=== PATIENT | male | born 1945 | race Asian ===

== ENCOUNTER 2018-08-29 15:22 | Emergency (ER) | payer MEDICARE, OTHER ==
[~2018-08-29] VITALS: Ht 172.7 cm; Wt 86.2 kg
[~2018-08-29 15:22] MED LIST: CARV25 PO; ERGO400 PO; EZET10; FURO20 PO; GLYB5 PO; ISOMON30 PO; LISI5 PO; LOSHYD PO; METF500; METF500 PO; MULVITMINF; PIOG15; ROSU10TA; ROSU10TA PO
[2018-08-29 16:30] LABS: Influenza A Positive (NEGATIVE); Influenza B Negative (NEGATIVE)
[2018-08-29 16:32] LABS: BASOPHILS ABSOLUTE AUTO 0.03 K/mm3 (0.00-0.23); BASOPHILS PERCENT AUTO 0 % (0-2); EOSINOPHILS ABSOLUTE AUTO 0.01 K/mm3 (0.00-0.68); EOSINOPHILS PERCENT AUTO 0 % (0-6); Hematocrit 42.1 % (37.0-53.0); Hemoglobin 13.8 g/dL (13.5-17.5); IMMATURE GRAN ABSOLUTE AUTO 0.03 K/mm3 (0.00-0.10); IMMATURE GRAN PERCENT AUTO 0 % (0-1); LYMPHOCYTES ABSOLUTE AUTO 1.07 K/mm3 (0.84-5.20); LYMPHOCYTES PERCENT AUTO 13 % (21-46); MONOCYTES ABSOLUTE AUTO 0.73 K/mm3 (0.16-1.47); MONOCYTES PERCENT AUTO 9 % (4-13); Mean Corpuscular HGB 33.7 pg (26.0-34.0); Mean Corpuscular HGB Conc 32.8 g/dL (31.5-36.5); Mean Corpuscular Volume 103 fL (80-100); NEUTROPHILS ABSOLUTE AUTO 6.44 K/mm3 (1.96-9.15); NEUTROPHILS PERCENT AUTO 77 % (41-73); RDW Coefficient Variation 12.3 % (11.7-14.2); RDW Standard Deviation 46.8 fL (35.1-46.3); White Blood Cell Count 8.31 K/mm3 (4.00-11.30)
[2018-08-29 16:39] LABS: Alanine Aminotransfer (ALT/SGP 31 U/L (12-78); Albumin, Blood 3.6 g/dL (3.4-5.0); Albumin/Globulin Ratio 0.8 (0.8-1.8); Alk Phos 85 U/L (50-136); Anion Gap 9 mmol/L (6-16); Aspartate Aminotrans (AST/SGOT 28 U/L (12-37); Bilirubin, Total 0.6 mg/dL (0.1-1.0); Blood Urea Nitrogen 15 mg/dL (8-24); Bun/Creatinine Ratio 12.6 (12.0-20.0); CO2, Blood 26 mmol/L (21-32); Calcium, Blood 8.5 mg/dL (8.5-10.1); Chloride, Blood 101 mmol/L (98-108); Creatinine, Blood 1.19 mg/dL (0.60-1.20); Globulin, Blood 4.3 g/dL (2.2-4.0); Glomerular Filtration Rate >60 (60-); Glucose, Blood 155 mg/dL (70-99); Potassium, Blood 3.8 mmol/L (3.5-5.5); Sodium, Blood 136 mmol/L (136-145); Total Protein, Blood 7.9 g/dL (6.4-8.2)
[2018-08-29 16:42] LABS: Mean Platelet Volume 9.9 fL (9.1-12.4); Platelet Count 100 K/mm3 (150-400)
[2018-08-29] MEDS ORDERED: METF500C PO (16:52)
[2018-08-29] MEDS ORDERED: GLIP10 PO (16:52)
[2018-08-29] MEDS ORDERED: JARDIANCE10 MG PO (16:52)
[2018-08-29] MEDS ORDERED: LOSA50 PO (16:53)
[2018-08-29] MEDS ORDERED: FURO40 PO (16:53)
[2018-08-29] MEDS ORDERED: ROSU10TA PO (16:53)
[2018-08-29] MEDS ORDERED: OMEPRAZOLE MAGN20 MG PO (16:54)
[2018-08-29] MEDS ORDERED: GABA100 PO (16:54)
[2018-08-29] MEDS ORDERED: AMLO5 PO (16:54)
[2018-08-29] MEDS ORDERED: CARV6.25 PO (16:54)
[2018-08-29] MEDS ORDERED: VIT B PO (16:55)
[2018-08-29 17:44] LABS: Source, Urine Clean Catch
[2018-08-29 17:58] LABS: Appearance, Urine Clear (Clear); Bilirubin, Urine Neg (Neg); Blood, Urine 4+ (Neg); Color, Urine Yellow (P-Yellow); Glucose Qualitative, Urine 4+ (Neg); Ketones, Urine 1+ (Neg); Leukocyte Esterase, Urine Neg (Neg); Nitrite, Urine Neg (Neg); Protein, Urine 3+ (Neg); Specific Gravity, Urine 1.015 (1.003-1.022); Urobilinogen, Urine NORM (Normal)
[2018-08-29 18:10] LABS: White Blood Cells, Urine Rare /hpf (0-5)
[2018-08-29 18:11] LABS: Bacteria Not Seen /hpf; Squamous Epithelial Cells Not Seen /hpf (Few)
[2018-08-29] MEDS ORDERED: BENZ100A PO (19:28)
[2018-08-29] MEDS ORDERED: ONDA4ODT MM (19:28)
[2018-08-29] MEDS ORDERED: ACET500 PO (19:28)
== END 2018-08-29 19:38 | disposition home or self-care (01) ==
LOC: ER 15:22
PROVIDERS: Emergency Medicine; Physician Assistant
DX: J10.1 Influenza due to other identified influenza virus with other respiratory manifestations (principal); Z79.899 Other long term (current) drug therapy; Z79.84 Long term (current) use of oral hypoglycemic drugs; I10 Essential (primary) hypertension; E11.9 Type 2 diabetes mellitus without complications; Z87.891 Personal history of nicotine dependence
CPT/HCPCS: 71046; 80053; 81001; 85025; 87804; 93005; 93010; 96374; 99284-25; J2405; J7030

== ENCOUNTER → 2021-04-29 | Outpatient (CLI) | payer MEDICARE, OTHER ==
[~2021-04-29] MED LIST changes: +ACET500 PO; +AMLO5 PO; +BENZ100A PO; +CARV6.25 PO; +FURO40 PO; +GABA100 PO; +GLIP10 PO; +JARDIANCE10 MG PO; +LOSA50 PO; +METF500C PO; +OMEPRAZOLE MAGN20 MG PO; +ONDA4ODT MM; +VIT B PO
[2021-04-30 12:54] LABS: C DIFFICILE DNA Negative (Negative)
== END | disposition home or self-care (01) ==
LOC: LAB SHORT 15:18
PROVIDERS: Physician Assistant
DX: R19.7 Diarrhea, unspecified (principal)
CPT/HCPCS: 87015; 87045; 87046; 87205; 87493; 87899

== ENCOUNTER 2021-06-24 10:31 | Day surgery (SDC) | payer MEDICARE, OTHER ==
[~2021-06-24] VITALS: Ht 172.7 cm; Wt 81.4 kg
--- NOTE | 2021-06-24 14:54 | NUR ---
06/24/21 [id number] Feng Guzman 1415- PATIENT DENIES PAIN, N/V AT THIS TIME. PATIENT STATES HE IS READY TO GO HOME. VSS
== END 2021-06-24 14:35 | disposition home or self-care (01) ==
LOC: ORSCSDS 10:31
PROVIDERS: Orthopaedic Surgery
PROC: 0LN80ZZ Release Left Hand Tendon, Open Approach (ICD-10-PCS; principal; 2021-06-24 12:05)
PROC: 0JNK0ZZ Release Left Hand Subcutaneous Tissue and Fascia, Open Approach (ICD-10-PCS; principal; 2021-06-24 12:05)
DX: M72.0 Palmar fascial fibromatosis [Dupuytren] (principal); I10 Essential (primary) hypertension; I25.10 Atherosclerotic heart disease of native coronary artery without angina pectoris; Z95.0 Presence of cardiac pacemaker; Z87.891 Personal history of nicotine dependence; E11.9 Type 2 diabetes mellitus without complications; Z79.84 Long term (current) use of oral hypoglycemic drugs; Z79.899 Other long term (current) drug therapy
CPT/HCPCS: 82947; 88304; J0171; J0690; J1100; J1885; J2250; J2405; J2704; J3010; J7120

== ENCOUNTER → 2023-08-26 | Outpatient (CLI) | payer MEDICARE, OTHER | END | disposition home or self-care (01) | LOC: LAB 16:11 → LAB SHORT 16:11 | DX: Z51.81 Encounter for therapeutic drug level monitoring (principal); Z79.899 Other long term (current) drug therapy | CPT/HCPCS: 82607; 82746 ==

== ENCOUNTER 2023-09-03 15:20 | Emergency (ER) | payer MEDICARE, OTHER ==
[~2023-09-03] VITALS: Ht 170.2 cm; Wt 72.6 kg
[2023-09-03 15:56] LABS: BASOPHILS ABSOLUTE AUTO 0.03 K/mm3 (0.00-0.23); BASOPHILS PERCENT AUTO 1 % (0-2); EOSINOPHILS ABSOLUTE AUTO 0.23 K/mm3 (0.00-0.68); EOSINOPHILS PERCENT AUTO 4 % (0-6); Hematocrit 34.7 % (37.0-53.0); Hemoglobin 11.8 g/dL (13.5-17.5); IMMATURE GRAN ABSOLUTE AUTO 0.03 K/mm3 (0.00-0.10); IMMATURE GRAN PERCENT AUTO 1 % (0-1); LYMPHOCYTES ABSOLUTE AUTO 1.21 K/mm3 (0.84-5.20); LYMPHOCYTES PERCENT AUTO 22 % (21-46); MONOCYTES ABSOLUTE AUTO 0.31 K/mm3 (0.16-1.47); MONOCYTES PERCENT AUTO 6 % (4-13); Mean Corpuscular HGB 35.2 pg (26.0-34.0); Mean Corpuscular Volume 104 fL (80-100); Mean Platelet Volume 9.1 fL (9.1-12.4); NEUTROPHILS ABSOLUTE AUTO 3.78 K/mm3 (1.96-9.15); NEUTROPHILS PERCENT AUTO 68 % (41-73); Platelet Count 170 K/mm3 (150-400); RDW Coefficient Variation 12.7 % (11.7-14.2); RDW Standard Deviation 47.9 fL (35.1-46.3); Red Blood Cell Count 3.35 M/mm3 (4.30-5.90); White Blood Cell Count 5.59 K/mm3 (4.00-11.30)
[2023-09-03 16:14] LABS: Albumin, Blood 3.4 g/dL (3.4-5.0); Albumin/Globulin Ratio 0.9 (0.8-1.8); Bilirubin, Total 0.6 mg/dL (0.1-1.0); Bun/Creatinine Ratio 12.9 (12.0-20.0); Calcium, Blood 9.1 mg/dL (8.5-10.1); Creatinine, Blood 1.01 mg/dL (0.60-1.20); Globulin, Blood 3.8 g/dL (2.2-4.0); Potassium, Blood 3.9 mmol/L (3.5-5.5); Total Protein, Blood 7.2 g/dL (6.4-8.2)
[2023-09-03 16:48] LABS: International Normalized Ratio 1.04; Prothrombin Time Results 10.9 Sec (9.7-11.5)
[2023-09-03 19:00] VITALS: BP 168/71
== END 2023-09-03 19:10 | disposition short-term general hospital (02) ==
LOC: ER 15:20
PROVIDERS: Physician Assistant
DX: I62.00 Nontraumatic subdural hemorrhage, unspecified (principal); I10 Essential (primary) hypertension; I25.10 Atherosclerotic heart disease of native coronary artery without angina pectoris; E11.9 Type 2 diabetes mellitus without complications; Z87.891 Personal history of nicotine dependence; Z95.0 Presence of cardiac pacemaker; Z95.1 Presence of aortocoronary bypass graft; Z79.84 Long term (current) use of oral hypoglycemic drugs; Z79.899 Other long term (current) drug therapy; Z91.81 History of falling
CPT/HCPCS: 80053; 85025; 85610; 93005; 93010; 99285-25

== ENCOUNTER 2024-03-08 06:17 | Day surgery (SDC) | payer MEDICARE, OTHER ==
[~2024-03-08] VITALS: Ht 172.7 cm; Wt 81.0 kg
[2024-03-08] VITALS (7 sets, daily range): BP systolic 129–148; BP diastolic 54–75
[~2024-03-08 06:17] MED LIST changes: +ASPI81CH PO; +CHLO4 PO; +Crestor40 MG PO; +PIOG15 PO; +TRULICITY3 MG/0.5 M SC
[2024-03-08] MEDS ORDERED: CeFAZolin Sodium 1000 mg Vial ONE (06:48)
[2024-03-08] MEDS ORDERED: Heparin Sodium 1000 Units/ML 10ML MDV ONE (06:49)
[2024-03-08] MEDS ORDERED: NS 500 ML IV ONE (06:49)
[2024-03-08] MEDS ORDERED: NS 250 ML IV ONE (06:49)
[2024-03-08] MEDS ORDERED: NS 1,000 ML IV ONE (07:54)
[2024-03-08] MEDS ORDERED: CeFAZolin Sodium 2,000 MG VIAL ONE (07:55)
[2024-03-08] MEDS ORDERED: NS 50 ML IV ONE (07:55)
[2024-03-08] MEDS ORDERED: FentaNYL Citrate 50 MCG/ML 2 ML Injection ONE (08:03)
[2024-03-08] MEDS ORDERED: Midazolam HCl 1MG / ML 2ML Vial ONE (08:03)
--- NOTE | 2024-03-08 09:10 | NUR ---
[facility]. A&O, sitting up in recliner. dressing D&I. Dr Terry here to speak to patient about post op care.
--- NOTE | 2024-03-08 09:38 | NUR ---
patient sitting in teet[place], eating breakfast, ice pack in place
--- NOTE | 2024-03-08 10:15 | NUR ---
patient verbalized understanding of discharge instructions and precautions. no further questions, site soft no hematoma, no bleeding dressing D&I. patient will follow up with office for appointment tomorrow if he does not get a call from them today. patient discharged home via wheelchair by discharge vollunteer. friend driving him home.
== END 2024-03-08 10:40 | disposition home or self-care (01) ==
LOC: MHTC 06:17
DX: Z45.010 Encounter for checking and testing of cardiac pacemaker pulse generator [battery] (principal); I25.10 Atherosclerotic heart disease of native coronary artery without angina pectoris; I25.5 Ischemic cardiomyopathy; E78.5 Hyperlipidemia, unspecified; E11.9 Type 2 diabetes mellitus without complications; Z95.1 Presence of aortocoronary bypass graft; Z79.82 Long term (current) use of aspirin; Z79.84 Long term (current) use of oral hypoglycemic drugs; Z87.891 Personal history of nicotine dependence
CPT/HCPCS: 33228; 99152; 99153; C1785; J0690; J1644; J2250; J3010; J7030; J7040; J7050

== ENCOUNTER 2024-04-14 02:49 | Emergency (ER) | payer MEDICARE, OTHER ==
[~2024-04-14] VITALS: Ht 172.7 cm; Wt 80.7 kg
[2024-04-14] MEDS ORDERED: Ondansetron HCl 2 MG / ML 2ML Vial IV PRN (03:15)
[2024-04-14 03:28] LABS: BASOPHILS ABSOLUTE AUTO 0.02 K/mm3 (0.00-0.23); BASOPHILS PERCENT AUTO 1 % (0-2); EOSINOPHILS ABSOLUTE AUTO 0.13 K/mm3 (0.00-0.68); EOSINOPHILS PERCENT AUTO 4 % (0-6); Hemoglobin 8.3 g/dL (13.5-17.5); IMMATURE GRAN ABSOLUTE AUTO 0.01 K/mm3 (0.00-0.10); IMMATURE GRAN PERCENT AUTO 0 % (0-1); LYMPHOCYTES ABSOLUTE AUTO 1.06 K/mm3 (0.84-5.20); LYMPHOCYTES PERCENT AUTO 32 % (21-46); MONOCYTES ABSOLUTE AUTO 0.26 K/mm3 (0.16-1.47); MONOCYTES PERCENT AUTO 8 % (4-13); Mean Corpuscular HGB 35.3 pg (26.0-34.0); Mean Corpuscular HGB Conc 30.7 g/dL (31.5-36.5); Mean Corpuscular Volume 115 fL (80-100); Mean Platelet Volume 8.9 fL (9.1-12.4); NEUTROPHILS ABSOLUTE AUTO 1.87 K/mm3 (1.96-9.15); NEUTROPHILS PERCENT AUTO 56 % (41-73); Platelet Count 119 K/mm3 (150-400); RDW Coefficient Variation 13.2 % (11.7-14.2); RDW Standard Deviation 56.1 fL (35.1-46.3); Red Blood Cell Count 2.35 M/mm3 (4.30-5.90); White Blood Cell Count 3.35 K/mm3 (4.00-11.30)
[2024-04-14 03:45] LABS: Albumin, Blood 2.2 g/dL (3.4-5.0); Albumin/Globulin Ratio 0.9 (0.8-1.8); Bilirubin, Total 0.3 mg/dL (0.1-1.0); Bun/Creatinine Ratio 15.1 (12.0-20.0); Calcium, Blood 6.1 mg/dL (8.5-10.1); Creatinine, Blood 0.73 mg/dL (0.60-1.20); Globulin, Blood 2.5 g/dL (2.2-4.0); Potassium, Blood 2.9 mmol/L (3.5-5.5); Total Protein, Blood 4.7 g/dL (6.4-8.2)
[2024-04-14 04:22] LABS: Source, Urine Clean Catch
[2024-04-14 04:37] LABS: Bilirubin, Urine Neg (Neg); Blood, Urine 1+ (Neg); Glucose Qualitative, Urine Neg (Neg); Ketones, Urine Neg (Neg); Leukocyte Esterase, Urine Neg (Neg); Nitrite, Urine Neg (Neg); Protein, Urine 2+ (Neg); Urobilinogen, Urine NORM (Normal); pH, Urine 6.5 (5.0-8.0)
[2024-04-14 04:48] LABS: Appearance, Urine Clear (Clear); Color, Urine Pale Yellow (P-Yellow)
[2024-04-14 04:49] LABS: Bacteria Rare /hpf; Red Blood Cells, Urine 0-2 /hpf (0-2); Squamous Epithelial Cells Few /hpf (Few); White Blood Cells, Urine 0-2 /hpf (0-5)
[2024-04-14] MEDS ORDERED: Mag Hydrox/AL Hydrox/Simeth 30 ML UDC PO ONE (04:50)
[2024-04-14] MEDS ORDERED: Lidocaine 2% Viscous Soln 15 ML UDC PO ONE (04:50)
[2024-04-14 05:09] LABS: BASOPHILS ABSOLUTE AUTO 0.02 K/mm3 (0.00-0.23); BASOPHILS PERCENT AUTO 0 % (0-2); EOSINOPHILS ABSOLUTE AUTO 0.13 K/mm3 (0.00-0.68); EOSINOPHILS PERCENT AUTO 3 % (0-6); Hematocrit 32.8 % (37.0-53.0); Hemoglobin 11.2 g/dL (13.5-17.5); IMMATURE GRAN ABSOLUTE AUTO 0.02 K/mm3 (0.00-0.10); IMMATURE GRAN PERCENT AUTO 0 % (0-1); LYMPHOCYTES ABSOLUTE AUTO 1.17 K/mm3 (0.84-5.20); LYMPHOCYTES PERCENT AUTO 23 % (21-46); MONOCYTES ABSOLUTE AUTO 0.27 K/mm3 (0.16-1.47); MONOCYTES PERCENT AUTO 5 % (4-13); Mean Corpuscular HGB 35.6 pg (26.0-34.0); Mean Corpuscular HGB Conc 34.1 g/dL (31.5-36.5); Mean Platelet Volume 8.9 fL (9.1-12.4); NEUTROPHILS ABSOLUTE AUTO 3.42 K/mm3 (1.96-9.15); NEUTROPHILS PERCENT AUTO 68 % (41-73); Platelet Count 134 K/mm3 (150-400); RDW Standard Deviation 49.9 fL (35.1-46.3); Red Blood Cell Count 3.15 M/mm3 (4.30-5.90); White Blood Cell Count 5.03 K/mm3 (4.00-11.30)
[2024-04-14 05:15] VITALS: BP 163/63
[2024-04-14 05:20] LABS: Mean Corpuscular Volume 104 fL (80-100)
[2024-04-14 05:28] LABS: Albumin, Blood 3.3 g/dL (3.4-5.0); Bilirubin, Total 0.6 mg/dL (0.1-1.0); Bun/Creatinine Ratio 13.7 (12.0-20.0); Creatinine, Blood 1.02 mg/dL (0.60-1.20); Potassium, Blood 3.9 mmol/L (3.5-5.5)
[2024-04-14] MEDS ORDERED: ALMACONE SUSPE355 ML PO (05:49)
[2024-04-14 05:58] LABS: Albumin/Globulin Ratio 0.9 (0.8-1.8); Globulin, Blood 3.5 g/dL (2.2-4.0)
[2024-04-14 05:59] LABS: Total Protein, Blood 6.8 g/dL (6.4-8.2)
[2024-04-15] MEDS ORDERED: Ondansetron HCl 2 MG / ML 2ML Vial IV ONE (03:15)
== END 2024-04-14 06:15 | disposition home or self-care (01) ==
LOC: ER 02:49
PROVIDERS: Emergency Medicine
DX: K21.9 Gastro-esophageal reflux disease without esophagitis (principal); I10 Essential (primary) hypertension; E11.9 Type 2 diabetes mellitus without complications; Z87.891 Personal history of nicotine dependence; Z79.899 Other long term (current) drug therapy; Z79.84 Long term (current) use of oral hypoglycemic drugs
CPT/HCPCS: 71046; 80053; 81001; 83690; 84484; 85025; 93005; 93010; 96374; 99284-25; A9270; J2405